=== PATIENT | male | born 1960 | race Caucasian/White ===

== ENCOUNTER 2017-07-17 04:00 | Emergency (ER) | payer SELFPAY ==
[~2017-07-17] VITALS: Ht 170.2 cm; Wt 65.0 kg
[2017-07-17 04:03] VITALS: PULSE 75; RESP 22; O2SAT 94
[2017-07-17 04:22] VITALS: BP 149/90; PULSE 76; RESP 20; O2SAT 93
[2017-07-17] MEDS ORDERED: UMEC1AER INH (04:33)
[2017-07-17] MEDS ORDERED: SODIUM CHLOR 0.9% 1000 ML INJ 1,000 ML IV SCH (04:36)
[2017-07-17] MEDS ORDERED: SODIUM CHLORIDE 0.9% FLUSH 10 ML FLUSH IV FLUSH PRN (04:45)
[2017-07-17] MEDS ORDERED: ONDANSETRON HCL 4 MG/2 ML VIAL IVP ONE (04:45)
[2017-07-17] MEDS ORDERED: MORPHINE SULFATE 4 MG/ML INJ IV PUSH ONE (04:45)
[2017-07-17 05:10] LABS: AUTOMATED NEUTROPHIL # 13.6 TH/MM3 (1.8-7.7); BASOPHIL % 0.3 % (0.0-2.0); EOSINOPHIL # 0.1 TH/MM3 (0-0.4); EOSINOPHIL % 0.8 % (0.0-4.0); HEMATOCRIT 42.8 % (39.0-51.0); HEMO FLAGS DIFF FINAL; LYMPH % 15.1 % (9.0-44.0); LYMPHOCYTE # 2.6 TH/MM3 (1.0-4.8); MEAN CELL VOLUME 88.7 FL (80.0-100.0); MEAN CORPUSCULAR HEMOGLOBIN 30.1 PG (27.0-34.0); MEAN CORPUSCULAR HGB CONC 33.9 % (32.0-36.0); NEUT % 77.8 % (16.0-70.0); PLATELET COUNT 293 TH/MM3 (150-450); RED BLOOD COUNT 4.83 MIL/MM3 (4.50-5.90); RED CELL DISTRIBUTION WIDTH 13.1 % (11.6-17.2); WHITE BLOOD COUNT 17.4 TH/MM3 (4.0-11.0)
[2017-07-17 05:20] LABS: APTT (PATIENT) 27.9 SEC (24.3-30.1); INTERNATIONAL NORMALIZED RATIO 0.9 RATIO; PROTHROMBIN TIME - PATIENT 10.4 SEC (9.8-11.6)
[2017-07-17 05:24] LABS: ANION GAP 5 MEQ/L (5-15); AST (GOT) 12 U/L (15-37); BICARBONATE 29.8 MEQ/L (21.0-32.0); BLOOD UREA NITROGEN 24 MG/DL (7-18); CHLORIDE 106 MEQ/L (98-107); GLOMERULAR FILTRATION RATE 57 ML/MIN (>89); POTASSIUM 4.1 MEQ/L (3.5-5.1); SODIUM (NA) 141 MEQ/L (136-145)
[2017-07-17 05:25] LABS: ALT (GPT) 17 U/L (12-78)
[2017-07-17 05:27] LABS: ALKALINE PHOSPHATASE 122 U/L (45-117); TOTAL BILIRUBIN ADULT 0.4 MG/DL (0.2-1.0)
[2017-07-17] MEDS ORDERED: IOHEXOL 350 MG/ML 10 ML VIAL (for RAD DIAG) IVCONTRAST ONE (06:09)
--- NOTE | 2017-07-17 06:21 | RADRPT ---
EXAM DATE/TIME: 07/17/2017 06:07 [place] COMPARISON: No previous studies available for comparison. INDICATIONS : Right lower quadrant pain and vomiting. IV CONTRAST: 92 cc Omnipaque 350 (iohexol) IV ORAL CONTRAST: No oral contrast ingested. RADIATION DOSE: 5.64 CTDIvol (mGy) MEDICAL HISTORY : Hernia. SURGICAL HISTORY : Spinal fusion. Hernia repair. ENCOUNTER: Initial ACUITY: 1 day PAIN SCALE: 9/10 LOCATION: upper quadrant TECHNIQUE: Volumetric scanning of the abdomen and pelvis was performed. Using automated exposure control and ad justment of the mA and/or kV according to patient size, radiation dose was kept as low as reasonably achievable to obtain optimal diagnostic quality images. DICOM format image data is available electro nically for review and comparison. FINDINGS: Lung bases demonstrate some emphysema. No consolidation. There is mild periportal edema in the lower, nonspecific. Spleen, adrenals, left kidney and pancreas unremarkable. There is a right-sided obstructive uropathy with mild hydronephrosis and perinephric stranding. There is a tiny 2 mm calculus at the right ureterovesical junction. Colonic diverticula noted without diverticulitis. No free air or free fluid. No bowel obstruction. Pa rs defects at the lumbosacral junction. CONCLUSION: 1. 2 mm calculus at right ureterovesical junction resulting in a right-sided obstructive uropathy and mild hydronephrosis with perinephric stranding and ureteral dilatation. Dragan Contreras MD on July 17, 2017 at 6:17 Board Certified Radiologist. This report was verified electronically.
[2017-07-17 07:00] VITALS: BP 152/89; PULSE 72; RESP 16; O2SAT 96
[2017-07-17] MEDS ORDERED: HYDROmorphone HCL PF 1 MG/ML VIAL IV PUSH ONE (07:00)
[2017-07-17] MEDS ORDERED: KETOROLAC TROMETHAMINE 30 MG/ML (IVP) VIAL IV PUSH ONE (07:00)
[2017-07-17] MEDS ORDERED: SODIUM CHLOR 0.9% 1000 ML INJ 1,000 ML IV ONE (07:30)
[2017-07-17 07:35] VITALS: RESP 16; O2SAT 97
--- NOTE | 2017-07-17 08:36 | PD ---
HPI Chief Complaint: Abdominal Pain Time Seen by Provider: 04:26 Travel History International Travel<30 days: No Contact w/Intl Traveler<30days: No Traveled to known affect area: No History of Present Illness HPI Patient is a 56-year-old male who comes in complaining of severe right lower quadrant abdominal pain. He says it started suddenly tonight and radiates into his groin. He says he's never had pain like this before. He says it was so bad it made him vomit. He denies fever or chills. He does report dribbling of urine, but says that this is been a chronic issue for him. He denies fever or chills. PFSH Past Medical History Asthma: Yes Diminished Hearing: No Tetanus Vaccination: Unknown Influenza Vaccination: No Past Surgical History Abdominal Surgery: Yes (HERNIA X2) Other Surgery: Yes (TUMOR REMOVED NECK) Social History Alcohol Use: No Tobacco Use: Yes (OCCASSIONALLY) Substance Use: No Allergies-Medications (Allergen,Severity, Reaction): Coded Allergies: No Known Allergies (Unverified , 07/17/17) Reported Meds & Prescriptions Reported Meds & Active Scripts Active Naproxen 500 Mg Tab 500 Mg PO BID 7 Days Lortab (Hydrocodone-Acetaminophen) 5-325 Mg Tab 1-2 Tab PO Q6H PRN Reported Anoro Ellipta Inh (Umeclidinium/Vilanterol) 62.5-25 Mcg/Act Aero 1 Puff INH DAILY Review of Systems Except as stated in HPI: all other systems reviewed are Neg General / Constitutional: No: Fever, Chills HENT: No: Headaches, Lightheadedness Cardiovascular: No: Chest Pain or Discomfort Gastrointestinal: Positive: Nausea, Vomiting, Abdominal Pain Genitourinary: No: Flank Pain Skin: No Rash, No Change in Pigmentation Neurologic: No: Weakness, Dizziness Physical Exam Narrative GENERAL: Awake and alert, in mild distress due to pain. SKIN: Focused skin assessment warm/dry. HEAD: Atraumatic. Normocephalic. EYES: Pupils equal and round. No scleral icterus. ENT: Mucous membranes pink and moist. NECK: Trachea midline. No JVD. CARDIOVASCULAR: Regular rate and rhythm. No murmur appreciated. RESPIRATORY: No accessory muscle use. Clear to auscultation. Breath sounds equal bilaterally. GASTROINTESTINAL: Abdomen soft, nondistended. No CVA tenderness. No testicular tenderness or testicular masses. Mild tenderness to palpation of the right lower quadrant. MUSCULOSKELETAL: No obvious deformities. No clubbing. No cyanosis. No edema. NEUROLOGICAL: Awake and alert. No obvious cranial nerve deficits. Motor grossly within normal limits. Normal speech. PSYCHIATRIC: Appropriate mood and affect; insight and judgment normal. Data Data Last Documented VS Vital Signs Date Time Temp Pulse Resp B/P (MAP) Pulse Ox O2 Delivery O2 Flow Rate FiO2 07/17/17 09:00 74 16 138/74 (95) 96 Room Air Orders Orders Complete Blood Count With Diff (07/17/17 04:36) Comprehensive Metabolic Panel (07/17/17 04:36) Lactic Acid (07/17/17 04:36) Prothrombin Time / Inr (Pt) (07/17/17 04:36) Act Partial Throm Time (Ptt) (07/17/17 04:36) Ct Abd/Pel W Iv Contrast(Rout) (07/17/17 04:36) Iv Access Insert/Monitor (07/17/17 04:36) Ecg Monitoring (07/17/17 04:36) Oximetry (07/17/17 04:36) Morphine Inj (Morphine Inj) (07/17/17 04:45) Ondansetron Inj (Zofran Inj) (07/17/17 04:45) Sodium Chlor 0.9% 1000 Ml Inj (Ns 1000 M (07/17/17 04:36) Sodium Chloride 0.9% Flush (Ns Flush) (07/17/17 04:45) Iohexol 350 Inj (Omnipaque 350 Inj) (07/17/17 06:09) Hydromorphone Pf Inj (Dilaudid Pf Inj) (07/17/17 07:00) Ketorolac Inj (Toradol Inj) (07/17/17 07:00) Sodium Chlor 0.9% 1000 Ml Inj (Ns 1000 M (07/17/17 07:30) Labs Laboratory Tests Test 07/17/17 04:53 White Blood Count 17.4 TH/MM3 Red Blood Count 4.83 MIL/MM3 Hemoglobin 14.5 GM/DL Hematocrit 42.8 % Mean Corpuscular Volume 88.7 FL Mean Corpuscular Hemoglobin 30.1 PG Mean Corpuscular Hemoglobin Concent 33.9 % Red Cell Distribution Width 13.1 % Platelet Count 293 TH/MM3 Mean Platelet Volume 7.7 FL Neutrophils (%) (Auto) 77.8 % Lymphocytes (%) (Auto) 15.1 % Monocytes (%) (Auto) 6.0 % Eosinophils (%) (Auto) 0.8 % Basophils (%) (Auto) 0.3 % Neutrophils # (Auto) 13.6 TH/MM3 Lymphocytes # (Auto) 2.6 TH/MM3 Monocytes # (Auto) 1.0 TH/MM3 Eosinophils # (Auto) 0.1 TH/MM3 Basophils # (Auto) 0.0 TH/MM3 CBC Comment DIFF FINAL Differential Comment Prothrombin Time 10.4 SEC Prothromb Time International Ratio 0.9 RATIO Activated Partial Thromboplast Time 27.9 SEC Blood Urea Nitrogen 24 MG/DL Creatinine 1.30 MG/DL Random Glucose 126 MG/DL Total Protein 7.0 GM/DL Albumin 4.0 GM/DL Calcium Level 8.2 MG/DL Alkaline Phosphatase 122 U/L Aspartate Amino Transf (AST/SGOT) 12 U/L Alanine Aminotransferase (ALT/SGPT) 17 U/L Total Bilirubin 0.4 MG/DL Sodium Level 141 MEQ/L Potassium Level 4.1 MEQ/L Chloride Level 106 MEQ/L Carbon Dioxide Level 29.8 MEQ/L Anion Gap 5 MEQ/L Estimat Glomerular Filtration Rate 57 ML/MIN Lactic Acid Level 1.8 mmol/L MDM Medical Decision Making Medical Screen Exam Complete: Yes Emergency Medical Condition: Yes Differential Diagnosis UTI versus appendicitis versus renal stone versus pyelonephritis Narrative Course Patient is a 56-year-old male comes in complaining of severe right lower quadrant pain. Exam shows right lower quadrant tenderness. IV established, labs sent. Labs show an elevated white blood cell count. Patient given IV fluids and pain medicine. CT abdomen and pelvis performed shows a 2 mm stone at the UVJ causing mild hydronephrosis. I spoke with Dr. Nicholson who advises patient can follow-up in the office if his pain is controlled. Patient given information about urology. We'll be discharged with prescriptions Diagnosis Primary Impression: Renal stone Scripts Naproxen (Naproxen) 500 Mg Tab 500 MG PO BID for 7 Days, #14 TAB 0 Refills Prov: José Manuel Lopez MD 07/17/17 Hydrocodone-Acetaminophen (Lortab) 5-325 Mg Tab 1-2 TAB PO Q6H Y for PAIN, #12 TAB 0 Refills Prov: José Manuel Lopez MD 07/17/17 Portia Cash MD Jul 17, 2017 08:36
[2017-07-17 09:00] VITALS: BP 138/74; PULSE 74; RESP 16; O2SAT 96
[2017-07-17] MEDS ORDERED: HYDR-3533 PO (09:56)
[2017-07-17] MEDS ORDERED: NAPR500T PO (09:56)
--- NOTE | 2017-07-17 09:56 | PD ---
Data Data Last Documented VS Vital Signs Date Time Temp Pulse Resp B/P (MAP) Pulse Ox O2 Delivery O2 Flow Rate FiO2 07/17/17 07:35 16 97 Room Air 07/17/17 04:22 76 149/90 (109) Orders Orders Complete Blood Count With Diff (07/17/17 04:36) Comprehensive Metabolic Panel (07/17/17 04:36) Lactic Acid (07/17/17 04:36) Prothrombin Time / Inr (Pt) (07/17/17 04:36) Act Partial Throm Time (Ptt) (07/17/17 04:36) Urinalysis - C+S If Indicated (07/17/17 04:36) Ct Abd/Pel W Iv Contrast(Rout) (07/17/17 04:36) Iv Access Insert/Monitor (07/17/17 04:36) Ecg Monitoring (07/17/17 04:36) Oximetry (07/17/17 04:36) Morphine Inj (Morphine Inj) (07/17/17 04:45) Ondansetron Inj (Zofran Inj) (07/17/17 04:45) Sodium Chlor 0.9% 1000 Ml Inj (Ns 1000 M (07/17/17 04:36) Sodium Chloride 0.9% Flush (Ns Flush) (07/17/17 04:45) Iohexol 350 Inj (Omnipaque 350 Inj) (07/17/17 06:09) Hydromorphone Pf Inj (Dilaudid Pf Inj) (07/17/17 07:00) Ketorolac Inj (Toradol Inj) (07/17/17 07:00) Sodium Chlor 0.9% 1000 Ml Inj (Ns 1000 M (07/17/17 07:30) Labs Laboratory Tests Test 07/17/17 04:53 White Blood Count 17.4 TH/MM3 Red Blood Count 4.83 MIL/MM3 Hemoglobin 14.5 GM/DL Hematocrit 42.8 % Mean Corpuscular Volume 88.7 FL Mean Corpuscular Hemoglobin 30.1 PG Mean Corpuscular Hemoglobin Concent 33.9 % Red Cell Distribution Width 13.1 % Platelet Count 293 TH/MM3 Mean Platelet Volume 7.7 FL Neutrophils (%) (Auto) 77.8 % Lymphocytes (%) (Auto) 15.1 % Monocytes (%) (Auto) 6.0 % Eosinophils (%) (Auto) 0.8 % Basophils (%) (Auto) 0.3 % Neutrophils # (Auto) 13.6 TH/MM3 Lymphocytes # (Auto) 2.6 TH/MM3 Monocytes # (Auto) 1.0 TH/MM3 Eosinophils # (Auto) 0.1 TH/MM3 Basophils # (Auto) 0.0 TH/MM3 CBC Comment DIFF FINAL Differential Comment Prothrombin Time 10.4 SEC Prothromb Time International Ratio 0.9 RATIO Activated Partial Thromboplast Time 27.9 SEC Blood Urea Nitrogen 24 MG/DL Creatinine 1.30 MG/DL Random Glucose 126 MG/DL Total Protein 7.0 GM/DL Albumin 4.0 GM/DL Calcium Level 8.2 MG/DL Alkaline Phosphatase 122 U/L Aspartate Amino Transf (AST/SGOT) 12 U/L Alanine Aminotransferase (ALT/SGPT) 17 U/L Total Bilirubin 0.4 MG/DL Sodium Level 141 MEQ/L Potassium Level 4.1 MEQ/L Chloride Level 106 MEQ/L Carbon Dioxide Level 29.8 MEQ/L Anion Gap 5 MEQ/L Estimat Glomerular Filtration Rate 57 ML/MIN Lactic Acid Level 1.8 mmol/L MDM Supervised Visit with TAYLOR: Yes Narrative Course Patient with ureterolithiasis. Awaiting urine. Patient refuses urine testing, states he does not want tested, would like to be discharged. Explained that we would like to test for infection. Diagnosis Primary Impression: Renal stone Additional Instruction: Take medications as prescribed. Up with her primary doctor in 1-2 days. Return to the emergency department for any worsening pain, fevers, vomiting, or any other new or worsening symptoms. Med/Other Pt SpecificInfo: Prescription(s) given Scripts Naproxen (Naproxen) 500 Mg Tab 500 MG PO BID for 7 Days, #14 TAB 0 Refills Prov: José Manuel Lopez MD 07/17/17 Hydrocodone-Acetaminophen (Lortab) 5-325 Mg Tab 1-2 TAB PO Q6H Y for PAIN, #12 TAB 0 Refills Prov: José Manuel Lopez MD 07/17/17 Disposition: 01 DISCHARGE HOME Condition: Stable José Manuel Lopez MD Jul 17, 2017 09:56
== END 2017-07-17 10:52 | disposition home or self-care (01) ==
LOC: NEPE 04:00
DX: N20.0 Calculus of kidney (principal); Z72.0 Tobacco use
CPT/HCPCS: 74177; 80053; 83605; 85025; 85610; 85730; 96374; 96375; 99285; J1170; J1885; J2270; J2405; J7030; Q9967